=== PATIENT | male | born 1965 | race Caucasian/White ===

== ENCOUNTER → 2018-07-19 | Outpatient (CLI) | payer BC | END | disposition home or self-care (01) | LOC: HKI 13:24 | DX: M54.5 Low back pain (principal); Z96.651 Presence of right artificial knee joint; Z98.1 Arthrodesis status | CPT/HCPCS: Z7500 ==

== ENCOUNTER 2018-08-10 02:48 | Inpatient (IN) | payer BC ==
[2018-08-10] MEDS ORDERED: PENDING SANTYL ORDER FOR WOUND CARE XX (04:30)
[2018-08-10] MEDS ORDERED: HYDROCODONE/APAP (5/325) TAB PO (04:30)
[2018-08-10] MEDS ORDERED: ONDANSETRON 4 MG INJ IV (06:30)
[2018-08-10] MEDS ORDERED: ALBUTEROL/IPRATROPIUM (NEB) 3 ML AMP HHN (06:30)
[2018-08-10] MEDS ORDERED: ACETAMINOPHEN 325 MG TAB PO (06:30)
[2018-08-10] MEDS ORDERED: traMADol 50 MG TAB PO (06:30)
[2018-08-10] MEDS ORDERED: NACL 0.9% 3 ML SYG IV (06:30)
[2018-08-10] MEDS ORDERED: ALPRAZOLAM 0.5 MG TAB PO (06:30)
[2018-08-10 07:57] LABS: ADD MAN DIFF? NO
[2018-08-10 07:59] LABS: WHITE BLOOD COUNT 7.5 10^3/ul (4.8-10.8)
[2018-08-10 07:59] LABS: BASOPHILS % 0.3 % (0.0-2.0); EOSINOPHILS # 0.1 10^3/ul (0.0-0.5); EOSINOPHILS % 0.9 % (0.0-7.0); HEMATOCRIT 36.4 % (42.0-52.0); HEMOGLOBIN 11.3 g/dl (14.0-18.0); LYMPHOCYTES # 2.9 10^3/ul (0.8-2.9); LYMPHOCYTES % 39.1 % (15.0-51.0); MEAN CORPUSCULAR VOLUME 86.9 fl (82.0-101.0); MEAN PLATELET VOLUME 11.6 fl (7.4-10.4); MONOCYTE # 0.6 10^3/ul (0.3-0.9); MONOCYTES % 7.9 % (0.0-11.0); NEUTROPHIL # 3.9 10^3/ul (1.6-7.5); NEUTROPHILS % 51.3 % (39.0-77.0); PLATELET COUNT 155 10^3/UL (140-415); RED BLOOD COUNT 4.19 10^6/ul (4.70-6.10); RED CELL DISTRIBUTION WIDTH 13.4 % (11.5-14.5)
[2018-08-10] MEDS: DOCUSATE SODIUM 100 MG CAP PO (08:19)
[2018-08-10] MEDS: GABAPENTIN 300 MG CAP PO ×2 (08:19→12:08)
[2018-08-10] MEDS: TIOTROPIUM 18 MCG CAPSULE INHA DEV INH (08:22)
[2018-08-10] MEDS: FLUOXETINE 20 MG CAP PO (08:23)
[2018-08-10 08:57] LABS: ALANINE AMINOTRANSFERASE 20 IU/L (13-69); ALBUMIN 3.3 g/dl (3.3-4.9); ALBUMIN/GLOBULIN RATIO 1.32; ALKALINE PHOSPHATASE 43 IU/L (42-121); ANION GAP 7 (8-16); ASPARTATE AMINO TRANSFERASE 17 IU/L (15-46); BILIRUBIN,INDIRECT 0.3 mg/dl (0-1.1); BILIRUBIN,TOTAL 0.3 mg/dl (0.2-1.3); BLOOD UREA NITROGEN 12 mg/dl (7-20); CALCIUM 9.1 mg/dl (8.4-10.2); CARBON DIOXIDE 30 mmol/L (21-31); CHLORIDE 108 mmol/L (97-110); CREATININE 0.87 mg/dl (0.61-1.24); GLUCOSE 90 mg/dl (70-220); POTASSIUM 4.2 mmol/L (3.5-5.1); SODIUM 141 mmol/L (135-144); TOTAL PROTEIN 5.8 g/dl (6.1-8.1)
[2018-08-10] MEDS ORDERED: TRIMETHOPRIM/SULFAMETHOX (DS) TAB PO (10:30)
[2018-08-10] MEDS ORDERED: VANCOMYCIN IV PER PHARMACY XX (11:00)
[2018-08-10] MEDS: HYDROCODONE/APAP (5/325) TAB PO ×2 (11:13→16:39)
[2018-08-10] MEDS: ALBUTEROL HFA 8 GM INHALER INH (12:09)
[2018-08-10] MEDS: VANCOMYCIN 1.5 GM in SOD CHLORIDE 0.9% 250 ML IVPB (12:52)
[2018-08-10] MEDS ORDERED: PRAZOSIN 1 MG CAP PO (21:00)
[2018-08-10] MEDS ORDERED: ATORVASTATIN 20 MG TAB PO (21:00)
[2018-08-10] MEDS ORDERED: traZODone 100 MG TAB PO (21:00)
[2018-08-11] MEDS ORDERED: VANCOMYCIN 1 GM 250 ML IVPB
== END 2018-08-10 18:17 | disposition home or self-care (01) | DRG 603 ==
LOC: PP2 02:48
DX: L03.113 Cellulitis of right upper limb (principal); J45.909 Unspecified asthma, uncomplicated; F41.9 Anxiety disorder, unspecified; F32.9 Major depressive disorder, single episode, unspecified; E78.5 Hyperlipidemia, unspecified
CPT/HCPCS: 80053; 85025; 97161

== ENCOUNTER 2019-08-02 14:10 | Emergency (ER) | payer BC | END 2019-08-02 15:54 | disposition home or self-care (01) | LOC: E/R 14:10 | DX: R60.0 Localized edema (principal); R60.9 Edema, unspecified; J45.909 Unspecified asthma, uncomplicated; Z96.659 Presence of unspecified artificial knee joint; Z87.891 Personal history of nicotine dependence | CPT/HCPCS: 99282; Z7502 ==